=== PATIENT | female | born 1985 | race Hispanic/Latino ===

== ENCOUNTER 2018-01-10 23:15 | Emergency (ER) | payer BC ==
[2018-01-10 23:38] VITALS: BP 129/70; PULSE 85; RESP 16; TEMP 98.7; O2SAT 100
[2018-01-11] MEDS ORDERED: Sodium Chloride 0.9% 1,000 ML IV STA (00:05)
--- NOTE | 2018-01-11 00:07 | ED PDOC ---
HPI: Psych/Substance Abuse Chief Complaint (Provider): alcohol intoxication, vomiting History Per: Patient, Family () History/Exam Limitations: no limitations Additional Complaint(s): 32 y/o female brought in by for evaluation of vomiting secondary to alcohol intoxication. states they were at a concert tonight and patient had a few drinks and then on the way home became vomiting. Patient awake upon arrival, states she feels nauseous. Denies fever, chest pain, abdominal pain, drug use, acute psychiatric complaints. <Soumya Norris - Last Filed: 01/11/18 02:31> <Joel Saenz - Last Filed: 01/11/18 02:56> Time Seen by Provider: 01/10/18 23:56 Chief Complaint (Nursing): Alcohol Ingestion Past Medical History Reviewed: Historical Data, Nursing Documentation, Vital Signs Vital Signs: Last Vital Signs Temp 98.7 F 01/10/18 23:34 Pulse 85 01/10/18 23:34 Resp 16 01/10/18 23:34 BP 129/70 01/10/18 23:34 Pulse Ox 100 01/10/18 23:34 - Medical History PMH: No Chronic Diseases - Surgical History Surgical History: No Surg Hx - Family History Family History: States: No Known Family Hx - Living Arrangements Living Arrangements: With Family <Soumya Norris - Last Filed: 01/11/18 02:31> Vital Signs: Last Vital Signs Temp 98.7 F 01/10/18 23:34 Pulse 85 01/10/18 23:34 Resp 16 01/10/18 23:34 BP 129/70 01/10/18 23:34 Pulse Ox 100 01/11/18 02:33 <Joel Saenz - Last Filed: 01/11/18 02:56> - Allergies Allergies/Adverse Reactions: Allergies Allergy/AdvReac Type Severity Reaction Status Date / Time No Known Allergies Allergy Verified 01/10/18 23:34 Review of Systems ROS Statement: Except As Marked, All Systems Reviewed And Found Negative Gastrointestinal: Positive for: Nausea, Vomiting <Soumya Norris - Last Filed: 01/11/18 02:31> Physical Exam - Reviewed Nursing Documentation Reviewed: Yes Vital Signs Reviewed: Yes - Physical Exam Appears: Positive for: Well, Non-toxic, No Acute Distress (intoxicated; slurred speech) Head Exam: Positive for: ATRAUMATIC, NORMAL INSPECTION, NORMOCEPHALIC Skin: Positive for: Normal Color Eye Exam: Positive for: Normal appearance ENT: Positive for: Normal ENT Inspection Cardiovascular/Chest: Positive for: Regular Rate, Rhythm Respiratory: Positive for: Normal Breath Sounds Gastrointestinal/Abdominal: Positive for: Normal Exam Back: Positive for: Normal Inspection Extremity: Positive for: Normal ROM Neurologic/Psych: Positive for: Alert, Oriented (x3) <Soumya Norris - Last Filed: 01/11/18 02:31> - Laboratory Results Result Diagrams: 01/11/18 01:00 01/11/18 01:00 - ECG O2 Sat by Pulse Oximetry: 100 - Progress ED Course And Treament: labs, IV fluids, IV zofran Patient tolerating PO on re-eval. Ambulating steady gait; ripped IV out, wants to go home. at bedside to take patient home. Potassium PO ordered for 3.3 level Patient requires no further intervention in the ED and is stable for discharge Return precautions given <Soumya Norris - Last Filed: 01/11/18 02:31> - Laboratory Results Result Diagrams: 01/11/18 01:00 01/11/18 01:00 <Joel Saenz - Last Filed: 01/11/18 02:56> Disposition - Patient ED Disposition Is Patient to be Admitted: No Counseled Patient/Family Regarding: Studies Performed, Diagnosis, Need For Followup - Disposition Disposition: Routine/Home Disposition Time: 02:32 <Soumya Norris - Last Filed: 01/11/18 02:31> <Joel Saenz - Last Filed: 01/11/18 02:56> - Clinical Impression Clinical Impression: Alcohol intolerance - Disposition Condition: IMPROVED Instructions: Alcohol Use - When Is Drinking a Problem?, Nausea and Vomiting, Adult
[2018-01-11 01:12] LABS: BASO % 0.4 % (0.0-2.0); EOS % 0.2 % (0.0-4.0); HEMOGLOBIN 12.7 g/dL (12.0-16.0); LYMPH % 10.2 % (20.0-40.0); MEAN CELL VOLUME 89.3 fl (81.0-99.0); MEAN CORPUSCULAR HEMOGLOBIN 30.5 pg (27.0-31.0); MEAN CORPUSCULAR HGB CONC 34.2 g/dL (33.0-37.0); MEAN PLATELET VOLUME 9.4 fl (7.2-11.7); MONO # 0.3 K/uL (0.0-0.8); MONO % 2.8 % (0.0-10.0); NEUT # 8.6 K/uL (1.8-7.0); NEUT % 86.4 % (50.0-75.0); RBC 4.15 Mil/uL (3.80-5.20); RED CELL DISTRIBUTION WIDTH 13.1 % (11.5-14.5)
[2018-01-11 01:26] LABS: ALB/GLOB RATIO 1.6 (1.0-2.1); ALBUMIN 4.6 g/dL (3.5-5.0); ALT/SGPT 41 U/L (9-52); AST/SGOT 60 U/L (14-36); BLOOD UREA NITROGEN 14 mg/dl (7-17); GFR AFRICAN-AMERICAN > 60; GFR NON-AFRICAN AMERICAN > 60
[2018-01-11 01:42] LABS: BARBITURATES, UR NEGATIVE (NEGATIVE); BENZODIAZEPINES, UR NEGATIVE (NEGATIVE); OPIATES, UR NEGATIVE (NEGATIVE); PHENCYCLIDINE, UR NEGATIVE (NEGATIVE)
[2018-01-11] MEDS ORDERED: Potassium Chloride 20 mEq ER Tab PO ONE ×2 (01:52→02:27)
== END 2018-01-11 02:50 | disposition home or self-care (01) ==
LOC: H.ER 23:15
DX: F10.129 Alcohol abuse with intoxication, unspecified (principal); R11.2 Nausea with vomiting, unspecified
CPT/HCPCS: 80053; 81025; 84703; 85025; 96374; 96376; 99282; G0480; J2405; J7030